=== PATIENT | male | born 1970 | race Caucasian/White ===

== ENCOUNTER 2019-05-16 08:00 | Day surgery (SDC) | payer BC ==
[2019-05-15 09:11] VITALS: BMI 33.1
[~2019-05-16 08:00] MED LIST: LACTATED RINGERS 1,000 ML IV SCH
[2019-05-16 08:33] VITALS: TEMP 97.2
[2019-05-16] MEDS ORDERED: LIDOCAINE 1% 20 ML VIAL (10MG/ML) FOR IV START INTRADERMA ONE (08:34)
[2019-05-16] MEDS ORDERED: LIDOCAINE 1% INJ 10MG/ML (20 ML MDV) ONE (09:17)
[2019-05-16] MEDS ORDERED: PROPOFOL 10 MG/ML 20 ML VIAL IV ONE (09:17)
--- NOTE | 2019-05-16 09:38 | P.PCN ---
Date of Procedure: 05/16/19 Procedure(s) Performed: BRIEF HISTORY: Patient is a 49-year-old [id number], white male scheduled for an elective colonoscopy as a part of screening for colorectal neoplasia/family history of colon cancer diagnosed in her mother at age 70. PROCEDURE PERFORMED: Colonoscopy with snare polypectomy. PREOPERATIVE DIAGNOSIS: Screening for colon cancer/family history of colon cancer. IV sedation per Anesthesia. PROCEDURE: After informed consent was obtained, the patient, was brought into the endoscopy unit. IV sedation was administered by Anesthesia under continuous monitoring. Digital rectal examination was normal. Initially the Olympus CF-160 flexible video colonoscope was then inserted in the rectum, gradually advanced into the cecum without any difficulty. Careful examination was performed as the scope was gradually being withdrawn. Ileocecal valve and the appendiceal orifice were visualized and appeared normal. Prep was excellent. Mucosa of the cecum, ascending colon, transverse colon, descending colon, sigmoid colon, and rectum appeared normal. There was a 5 minute a polyp in the distal rectum that was removed by snare polypectomy. Retroflexion was performed in the rectum and no lesions were seen. The patient tolerated the procedure well. IMPRESSION: 5 mm rectal polyp status post polypectomy Rest of the colon appeared normal RECOMMENDATIONS: Findings of this examination were discussed with the patient as well as her family. He was advised to follow with the biopsy results. He can have a repeat colonoscopy in 5 years from now because of the family history of colon cancer.
[2019-05-16 10:06] VITALS: BP 116/71; PULSE 57; RESP 18
== END 2019-05-16 10:24 | disposition home or self-care (01) ==
LOC: ORWHC2ENDO 08:00
PROVIDERS: ATTEND Internal Medicine Gastroenterology
DX: Z12.11 Encounter for screening for malignant neoplasm of colon (principal); K62.1 Rectal polyp; Z85.038 Personal history of other malignant neoplasm of large intestine; I10 Essential (primary) hypertension; E78.5 Hyperlipidemia, unspecified; F41.9 Anxiety disorder, unspecified; F32.9 Major depressive disorder, single episode, unspecified; Z79.899 Other long term (current) drug therapy; Z80.0 Family history of malignant neoplasm of digestive organs
CPT/HCPCS: 88305; 45385; J2001; J2704

== ENCOUNTER → 2022-12-01 | Outpatient (CLI) | payer BC ==
--- NOTE | 2022-12-01 17:39 | CA ---
Transthoracic Echo Report Name: Kwabena Brady Age: 52 Gender: M : 1970 Exam Date: 12/01/2022 13:56 Exam Location: [place] [facility] Ht (in): 75 Wt (lb): 277 Ordering Physician: Alexis Larry DO Attending/Referring Phys: System Analyst Cydney Winchester RDCS Procedure CPT: Indications: R00.2 palpitations Cardiac Hx: Technical Quality: Good Contrast 1: Total Dose (mL): Contrast 2: Total Dose (mL): MEASUREMENTS (Male / Female) Normal Values 2D ECHO LV Diastolic Diameter PLAX 4.1 cm 4.2 - 5.9 / 3.9 - 5.3 cm LV Systolic Diameter PLAX 3.0 cm IVS Diastolic Thickness 1.5 cm 0.6 - 1.0 / 0.6 - 0.9 cm LVPW Diastolic Thickness 1.1 cm 0.6 - 1.0 / 0.6 - 0.9 cm LV Relative Wall Thickness 0.6 RV Internal Dim ED PLAX 3.3 cm LA Systolic Diameter LX 3.8 cm 3.0 - 4.0 / 2.7 - 3.8 cm LV Diastolic Volume MOD BP 130.0 cm??? 67 - 155 / 56 - 104 cm??? LV Systolic Volume MOD BP 51.6 cm??? 22 - 58 / 19 - 49 cm??? LV Ejection Fraction MOD BP 60.3 % >= 55 % LV Cardiac Index MOD BP 2127.6 cm???/min???m??? LV Diastolic Volume MOD 4C 128.8 cm??? LV Systolic Volume MOD 4C 47.0 cm??? LV Ejection Fraction MOD 4C 63.5 % LV Cardiac Index MOD 4C 2219.8 cm???/min???m??? LV Diastolic Length 4C 8.8 cm LV Systolic Length 4C 7.2 cm LV Diastolic Volume MOD 2C 125.1 cm??? LV Systolic Volume MOD 2C 52.0 cm??? LV Ejection Fraction MOD 2C 58.4 % LV Cardiac Index MOD 2C 1983.5 cm???/min???m??? LV Diastolic Length 2C 8.3 cm LV Systolic Length 2C 7.9 cm LA Volume 81.0 cm??? 18 - 58 / 22 - 52 cm??? M-MODE Aortic Root Diameter MM 3.5 cm MV E Point Septal Separation 0.8 cm AV Cusp Separation MM 2.3 cm DOPPLER AV Peak Velocity 174.6 cm/s AV Peak Gradient 12.2 mmHg AI Peak Velocity 401.1 cm/s AI Peak Gradient 64.4 mmHg AI Pressure Half Time 1431.7 ms MV Area PHT 3.4 cm??? Mitral E Point Velocity 102.0 cm/s Mitral A Point Velocity 91.6 cm/s Mitral E to A Ratio 1.1 MV Deceleration Time 225.9 ms MV E' Velocity 10.7 cm/s Mitral E to MV E' Ratio 9.5 TR Peak Velocity 221.4 cm/s TR Peak Gradient 19.6 mmHg Right Ventricular Systolic Press 23.9 mmHg FINDINGS Left Ventricle Left ventricular ejection fraction is estimated at 55-60 %. Left ventricular cavity size normal. Moderately increased septal wall thickness. Right Ventricle Mild right ventricular dilatation. Right ventricular systolic pressure within normal limits. Right Atrium Normal right atrial size. Left Atrium Severely increased left atrial volume. Mildly increased left atrial area. Mitral Valve Structurally normal mitral valve. Trace to mild mitral regurgitation. Aortic Valve Trileaflet aortic valve. Diffuse thickening (sclerosis) of the aortic valve cusps without reduced excursion. Mild aortic regurgitation. Tricuspid Valve Structurally normal tricuspid valve. Mild tricuspid regurgitation. Pulmonic Valve Structurally normal pulmonic valve. Trace pulmonic regurgitation. Pericardium No pericardial effusion. Aorta Normal size aortic root and proximal ascending aorta. CONCLUSIONS Normal LV function Previewed by: Dr. Beau Colindres MD (Electronically Signed) Final Date: 01 December 2022 17:38
== END | disposition home or self-care (01) ==
LOC: RADECHMAIN 13:39
PROVIDERS: ATTEND Family Medicine
DX: R00.2 Palpitations (principal)
CPT/HCPCS: 93306

== ENCOUNTER → 2023-03-29 | Outpatient (CLI) | payer BC ==
--- NOTE | 2023-04-03 12:16 | HM ---
HOLTER MONITOR REPORT The patient was monitored for 24 hours. CLINICAL INFORMATION: Baseline rhythm is sinus mechanism with normal conduction, the average rate 73 beats per minute, minimum 45, maximum 118 beats per minute. Ventricular ectopic activity was present in form of rare single PVCs. Supraventricular ectopic activity was present form for a single PACs. No symptoms were reported. CONCLUSION: 1. Sinus mechanism baseline rhythm. 2. Rare ventricular ectopic activity. 3. Rare supraventricular ectopic activity. 4. No symptoms were reported. MMODL / IJN: [id number] /
== END | disposition home or self-care (01) ==
LOC: RADECHMAIN 07:45
PROVIDERS: ATTEND Internal Medicine
DX: R00.2 Palpitations (principal)
CPT/HCPCS: 93225; 93226

== ENCOUNTER → 2024-05-09 | Outpatient (CLI) | payer BC ==
--- NOTE | 2024-05-12 08:45 | MR ---
EXAMINATION TYPE: MR tib fib RT wo/w con DATE OF EXAM: 05/09/2024 2:48 PM COMPARISON: Radiograph 07/09/2014 CLINICAL INDICATION: Male, 54 years old with history of R22.41 MASS AND LUMP, RIGHT LOWER LIMB, Mass, right medial tibia and invading the mid diaphysis., TECHNIQUE: Multiplanar, multisequence images of the right tibia/fibula were obtained before and after administration of 12 mL intravenous Gadobutrol gadolinium contrast. Coronal and axial images of the left tibia/fibula for comparison purposes. IV Contrast: 12 cc Gadobutrol (None if empty) FINDINGS: There is a complex, solid, septated mass with some mild increased intrinsic T1 weighted components bu t with avid postcontrast enhancement throughout the mass. This measures 6.6 cm wide by 9.0 cm AP by 1 2.7 cm craniocaudal and is located within the medial aspect of the proximal third left leg. It wraps around posteriorly to the popliteus muscle superiorly and wraps anteriorly approximate 5 cm below the tibial tuberosity. There is scalloping and thinning of over 50% of the outer tibial cortex with broa d-based cortical abutment for a craniocaudal span of nearly 6.6 cm. One small 4 mm focal area of full -thickness cortical disruption medially where there is some reactive marrow signal change demonstrate d and some associated postcontrast enhancement. Along the inferior and mid aspect of the mass, there is involvement of the superficial posterior comp artment of the leg (medial aspect of the soleus). Anterior extension is into the subcutaneous tissues . Superiorly, there is involvement of the deep posterior compartment, particularly the popliteus. Corticated ossific density overlying the tibial tuberosity could reflect sequela of previous patellar tendon injury or Kalia-Schlatter's disease. No other suspicious soft tissue or osseous lesion is identified. IMPRESSION: 1. Lobulated, solid septated mass with avid postcontrast enhancement centered at the medial aspect of the proximal third leg. This measures 12.7 x 9.0 x 6.6 cm and has a broad abutment of the medial tib ial cortex for a craniocaudal span of 6.6 cm thinning the cortex by over 50%. There is one small 4 mm area of full-thickness cortical disruption. Some secondary reactive osseous edema at this location. The patient may need to be nonweightbearing to limit the chances of pathologic fracture. 2. Inferiorly, the mass involves the superficial posterior compartment (medial aspect of the soleus) and extends into the anterior subcutaneous tissues. Along the mid and superior aspect, there is invol vement of the deep posterior compartment (popliteus muscle). 3. Recommend orthopedic oncology evaluation for potential sarcoma. [facility], , 05/12/2024 8:42 AM
== END | disposition home or self-care (01) ==
LOC: RADMRIMAIN 13:31
PROVIDERS: ATTEND Orthopaedic Surgery
DX: R22.41 Localized swelling, mass and lump, right lower limb (principal)
CPT/HCPCS: 73720; A9585